=== PATIENT | female | born 1950 | race Caucasian/White ===

== ENCOUNTER 2016-07-04 22:13 | Emergency (ER) | payer OTHER ==
[~2016-07-04] VITALS: Ht 162.6 cm; Wt 68.2 kg
[2016-07-05] MEDS ORDERED: IBUPROFEN 200 MG TABLET ONE (00:45)
[2016-07-05] MEDS ORDERED: HYDROcodone/APAP 5/325 TABLET ONE (00:45)
[2016-07-05] MEDS ORDERED: HYDROcodone/APAP 5/325 TABLET PO ONE (01:00)
[2016-07-05] MEDS ORDERED: IBUPROFEN 200 MG TABLET PO ONE (01:00)
[2016-07-05 01:22] VITALS: BP 118/78
[2016-07-06] MEDS ORDERED: HYDR-3341 PO (01:59)
[2016-07-06] MEDS ORDERED: PREG100C PO (01:59)
[2016-07-06] MEDS ORDERED: HYDR-3307 PO (01:59)
[2016-07-06] MEDS ORDERED: AMLO5TAB2 PO (01:59)
== END 2016-07-05 01:26 | disposition home or self-care (01) ==
LOC: ED 23:59
DX: S70.01XA Contusion of right hip, initial encounter (principal); S39.012A Strain of muscle, fascia and tendon of lower back, initial encounter; E11.9 Type 2 diabetes mellitus without complications; Z90.49 Acquired absence of other specified parts of digestive tract; X58.XXXA Exposure to other specified factors, initial encounter; Y93.89 Activity, other specified; Y92.89 Other specified places as the place of occurrence of the external cause; Y99.8 Other external cause status
CPT/HCPCS: 71020; 72110; 72170; 99284

== ENCOUNTER 2020-04-07 09:20 | Inpatient (IN) | payer MEDICARE, OTHER ==
[~2020-04-07] VITALS: Ht 162.6 cm; Wt 92.1 kg
[~2020-04-07 09:20] MED LIST: AMLO-150 PO; ATOR40TA78 PO; HYDR-3248 PO; HYDR-3341 PO; LISI-170 PO; MAGN400T26 PO; METO-99 PO; OMEP-110 PO; POTA20TA6 PO; PREG100C PO; TRAM50TA2 PO; VANC1VIA3 PO
[2020-04-07] MEDS ORDERED: ONDANSETRON 2MG/ML, 2ML IVPush ONE (09:30)
[2020-04-07] MEDS ORDERED: MORPHINE SULFATE 4 MG/ML, 1ML IVPush PRN (09:30)
[2020-04-07] MEDS ORDERED: SODIUM CHLORIDE FLUSH 10ML SYR IVF ONE (09:30)
--- NOTE | 2020-04-07 09:34 | NUR ---
PT CAME IN [place] LEFT ARM PAIN WHERE HER FISTULA IS. PT GETS DIAYLSIS MWF BUT HAD IT ON WEDNESDAY THIS WEEK BECASUE SHE WAS VACATIONING TO THE R. PT ALSO ADMITS TO GETTING COVID SHOT IN THAT ARM. PT FOUND TO BE HYPOXIC ON RM AIR AT 85%, PLACED ON 2 LITERS AND IS NOW 95%. PT RESTING IN [facility]. CONNECTED TO MONITORING EQUIPMENT
[2020-04-07] MEDS ORDERED: MORPHINE SULFATE 4 MG/ML, 1ML ONE (09:43)
[2020-04-07] MEDS ORDERED: ONDANSETRON 2MG/ML, 2ML ONE (09:43)
--- NOTE | 2020-04-07 10:04 | NUR ---
IVSTARTED. MEDICATED PER MAR
[2020-04-07 10:24] LABS: ALBUMIN 3.7 g/dL (3.4-5.0); ANION GAP 9 mmol/L (5-15); CALCIUM 9.2 mg/dL (8.5-10.1); CHLORIDE 98 mmol/L (98-107); CREATININE 5.78 mg/dL (0.55-1.02)
[2020-04-07 10:28] LABS: TROPONIN I < 0.015 ng/mL (0.000-0.045)
[2020-04-07 10:31] LABS: BASOPHILS % (AUTO) 1 % (0-1); EOSINOPHILS % (AUTO) 1 % (1-7); LYMPHOCYTES % (AUTO) 8 % (22-44); MEAN CORPUSCULAR HEMOGLOBIN 27.3 pg (27.0-34.8); MEAN CORPUSCULAR HGB CONC 32.9 g/dL (32.4-35.8); MEAN PLATELET VOLUME 8.5 fL (7.4-10.4); MONOCYTES % (AUTO) 8 % (2-9); NEUTROPHILS % (AUTO) 83 % (42-75); PLATELET COUNT 169 x10^3/uL (130-400); RED CELL DISTRIBUTION WIDTH 22.2 % (9.6-15.2)
[2020-04-07 10:53] LABS: MD MORPH REVIEW ONLY
[2020-04-07 10:54] LABS: <PLATELET ESTIMATE> ADEQUATE; <PLT MORPHOLOGY> NORMAL PLT MORPH; ANISOCYTOSIS 1+; OVALOCYTES 1+; POLYCHROMASIA 1+
[2020-04-07] MEDS ORDERED: OMNIPAQUE 350 MG/ML, 75ML BOTTLE ONE (11:00)
[2020-04-07] MEDS ORDERED: ALBUTEROL/IPRATROPIUM 2.5MG/0.5MG, 3 ML NEB ONE (12:00)
[2020-04-07] MEDS ORDERED: methylPREDNISolone SOD SUCC 125 MG/2 ML IVPush ONE (12:00)
[2020-04-07] MEDS ORDERED: ACETAMINOPHEN 500 MG TABLET PO ONE (12:00)
[2020-04-07] MEDS ORDERED: CEFTRIAXONE PMX 1GM/50ML 50 ML ONE (12:10)
[2020-04-07] MEDS ORDERED: methylPREDNISolone SOD SUCC 125 MG/2 ML ONE (12:10)
[2020-04-07] MEDS ORDERED: HYDROcodone/APAP 10/325 MG TABLET ONE (12:11)
[2020-04-07] MEDS ORDERED: ALBUTEROL/IPRATROPIUM 2.5MG/0.5MG, 3 ML ONE (12:11)
[2020-04-07] MEDS ORDERED: HYDROcodone/APAP 10/325 MG TABLET PO ONE (12:30)
[2020-04-07] MEDS ORDERED: CEFTRIAXONE PMX 1GM/50ML 50 ML IV ONE (12:30)
[2020-04-07] MEDS ORDERED: AZITHROMYCIN 500 MG in SODIUM CHLORIDE 0.9% 250 ML IV ONE (12:30)
--- NOTE | 2020-04-07 12:40 | NUR ---
BREATHING TX IN PROGRESS. PT TOLERATING WELL. COVNOMAN SWAB WALKED TO LAB
[2020-04-07] MEDS ORDERED: ONDANSETRON ODT 4 MG PO PRN (13:00)
[2020-04-07] MEDS ORDERED: ONDANSETRON 2MG/ML, 2ML IVPush PRN (13:00)
[2020-04-07] MEDS ORDERED: BACLOFEN 10 MG TABLET PO PRN (13:00)
[2020-04-07] MEDS ORDERED: BUTALB/APAP/CAFFEINE 50MG/325MG/40MG PO PRN (13:00)
[2020-04-07] MEDS ORDERED: hydrALAzine 20 MG/ML, 1ML IVPush PRN (13:00)
[2020-04-07] MEDS ORDERED: GUAIFENESIN/DM 200-20MG, 10ML UDC PO PRN (13:00)
[2020-04-07] MEDS ORDERED: ACETAMINOPHEN 325 MG TABLET PO PRN (13:00)
[2020-04-07] MEDS ORDERED: ENALAPRILAT 1.25 MG/ML, 2ML IVPush PRN (13:00)
--- NOTE | 2020-04-07 13:05 | NUR ---
PT RESTING IN [facility]. MEDICATED PER APR. NO NEEDS AT THIS TIME
--- NOTE | 2020-04-07 13:35 | NUR ---
PT RESTING IN [facility]. NAD. WILL CONTINUE TO MONITOR
[2020-04-07 14:15] VITALS: BP 125/69
[2020-04-07] MEDS: NICOTINE 21 MG/24 HR PATCH.TD24 TD SCH (16:49)
[2020-04-07] MEDS ORDERED: ATOR40TA78 PO (17:18)
[2020-04-07] MEDS ORDERED: CALC667C PO (17:18)
[2020-04-07] MEDS ORDERED: FURO80TA3 PO (17:18)
[2020-04-07] MEDS ORDERED: METO-95 PO (17:18)
[2020-04-07] MEDS ORDERED: FLUT1DIS3 INH (17:18)
[2020-04-07] MEDS ORDERED: OMEP-110 PO (17:18)
[2020-04-07] MEDS ORDERED: HYDR1TAB53 PO (17:18)
[2020-04-07] MEDS ORDERED: PREG100C PO (17:18)
[2020-04-07] MEDS ORDERED: BENA20TA54 PO (17:18)
[2020-04-07] MEDS ORDERED: ALBU8.5H8 INH (17:18)
[2020-04-07] MEDS ORDERED: HYDROcodone/APAP 10/325 MG TABLET PO PRN (18:00)
[2020-04-07 20:35] VITALS: BP 148/67
[2020-04-07] MEDS ORDERED: PREGABALIN 100 MG CAPSULE PO SCH (21:00)
[2020-04-07] MEDS: ALBUTEROL HFA 90 MCG/SPRAY INH SCH (22:01)
[2020-04-07] MEDS: ATORVASTATIN 40 MG TABLET PO SCH (22:02)
[2020-04-07] MEDS: MELATONIN 5 MG TABLET PO SCH (22:02)
[2020-04-07] MEDS: FUROSEMIDE 80 MG TABLET PO SCH (22:03)
[2020-04-08] MEDS: CEFTRIAXONE PMX 1GM/50ML 50 ML IV SCH ×2 (00:38→11:39)
[2020-04-08 00:41] VITALS: BP 144/76
[2020-04-08] MEDS: ALBUTEROL HFA 90 MCG/SPRAY INH SCH ×8 (01:00→23:20)
[2020-04-08 02:23] VITALS: BP 136/69
[2020-04-08 04:46] VITALS: BP 137/71
[2020-04-08 05:43] LABS: MEAN CORPUSCULAR HEMOGLOBIN 27.6 pg (27.0-34.8); MEAN CORPUSCULAR HGB CONC 32.8 g/dL (32.4-35.8); MEAN PLATELET VOLUME 8.4 fL (7.4-10.4); PLATELET COUNT 146 x10^3/uL (130-400); RED BLOOD COUNT 3.47 x10^6/uL (3.82-5.3); RED CELL DISTRIBUTION WIDTH 21.8 % (9.6-15.2)
[2020-04-08 05:52] LABS: ALANINE AMINOTRANSFERASE 10 U/L (12-78); ANION GAP 8 mmol/L (5-15); CALCIUM 8.3 mg/dL (8.5-10.1); CHLORIDE 99 mmol/L (98-107)
[2020-04-08 05:54] LABS: ALKALINE PHOSPHATASE 85 U/L (45-117); BILIRUBIN,TOTAL 0.3 mg/dL (0.2-1.0)
[2020-04-08 06:17] LABS: MD YES
[2020-04-08 06:19] LABS: BAND#(MANUAL) 0.09 x10^3/uL; BANDS%(MANUAL) 1 % (0-7); BASOS#(MANUAL) 0.09 x10^3/uL (0-0.1); BASOS% (MANUAL) 1 % (0-1); LYMPH#(MANUAL) 0.26 x10^3/uL (1-3.4); LYMPHS% (MANUAL) 3 % (22-44); MONOS#(MANUAL) 0.17 x10^3/uL (0.3-2.7); MONOS% (MANUAL) 2 % (2-9); OVALOCYTES 1+; POLYCHROMASIA 1+; SEG#(MANUAL) 8.09 x10^3/uL (1.8-6.8); SEGS% (MANUAL) 93 % (42-75)
[2020-04-08 06:21] LABS: <PLATELET ESTIMATE> DECREASED; LARGE PLATELETS 1+
[2020-04-08 08:15] VITALS: BP 144/73
[2020-04-08] MEDS: SENNA/DOCUSATE TABLET PO SCH (09:00)
[2020-04-08] MEDS: FLUTICASONE/VILANTEROL 100-25MCG/INH INH SCH ×2 (09:58→11:19)
[2020-04-08] MEDS: CALCIUM ACETATE 667 MG CAPSULE PO SCH ×4 (09:58→16:00)
[2020-04-08] MEDS: OMEPRAZOLE 20 MG CAPSULE.DR PO SCH (09:59)
[2020-04-08] MEDS: BENAZEPRIL 20 MG TABLET PO SCH (09:59)
[2020-04-08] MEDS: FUROSEMIDE 80 MG TABLET PO SCH ×2 (09:59→22:07)
[2020-04-08] MEDS: NICOTINE 21 MG/24 HR PATCH.TD24 TD SCH (10:00)
[2020-04-08] MEDS: METOPROLOL SUCCINATE 100 MG TAB.ER.24H PO SCH (10:00)
[2020-04-08] MEDS ORDERED: AZITHROMYCIN 500 MG in SODIUM CHLORIDE 0.9% 250 ML IV SCH (12:30)
[2020-04-08 13:46] VITALS: BP 129/67
[2020-04-08] MEDS ORDERED: ALBUTEROL/IPRATROPIUM 2.5MG/0.5MG, 3 ML NEB SCH (18:30)
[2020-04-08 18:49] VITALS: BP 134/63
[2020-04-08] MEDS: MELATONIN 5 MG TABLET PO SCH (20:27)
[2020-04-08] MEDS: ATORVASTATIN 40 MG TABLET PO SCH (22:06)
[2020-04-09 00:14] VITALS: BP 141/54
[2020-04-09] MEDS: CEFTRIAXONE PMX 1GM/50ML 50 ML IV SCH (00:27)
[2020-04-09] MEDS: ALBUTEROL HFA 90 MCG/SPRAY INH SCH ×2 (02:10→07:15)
[2020-04-09 05:32] LABS: BASOPHILS % (AUTO) 1 % (0-1); EOSINOPHILS % (AUTO) 1 % (1-7); LYMPHOCYTES % (AUTO) 13 % (22-44); MEAN CORPUSCULAR HEMOGLOBIN 27.2 pg (27.0-34.8); MEAN CORPUSCULAR HGB CONC 32.1 g/dL (32.4-35.8); MEAN PLATELET VOLUME 8.2 fL (7.4-10.4); MONOCYTES % (AUTO) 9 % (2-9); NEUTROPHILS % (AUTO) 77 % (42-75); PLATELET COUNT 164 x10^3/uL (130-400); RED BLOOD COUNT 3.74 x10^6/uL (3.82-5.3); RED CELL DISTRIBUTION WIDTH 22.4 % (9.6-15.2)
[2020-04-09 05:35] LABS: ALBUMIN 2.8 g/dL (3.4-5.0); ANION GAP 8 mmol/L (5-15); CALCIUM 8.2 mg/dL (8.5-10.1); CHLORIDE 98 mmol/L (98-107); CREATININE 4.34 mg/dL (0.55-1.02)
[2020-04-09 06:09] LABS: MD SCAN
[2020-04-09 06:51] VITALS: BP 152/64
[2020-04-09] MEDS: FUROSEMIDE 80 MG TABLET PO SCH (07:35)
[2020-04-09] MEDS: NICOTINE 21 MG/24 HR PATCH.TD24 TD SCH (07:35)
[2020-04-09] MEDS: OMEPRAZOLE 20 MG CAPSULE.DR PO SCH (07:35)
[2020-04-09] MEDS: METOPROLOL SUCCINATE 100 MG TAB.ER.24H PO SCH (07:36)
[2020-04-09] MEDS: CALCIUM ACETATE 667 MG CAPSULE PO SCH ×2 (07:36→11:34)
[2020-04-09] MEDS: SENNA/DOCUSATE TABLET PO SCH (07:36)
[2020-04-09] MEDS: BENAZEPRIL 20 MG TABLET PO SCH (07:36)
[2020-04-09] MEDS ORDERED: DILTIAZEM 30 MG TABLET PO SCH (08:30)
[2020-04-09] MEDS ORDERED: AMIODARONE 150 MG in DEXTROSE 5% 100 ML IV ONE (09:00)
[2020-04-09] MEDS ORDERED: FILTER 0.22 MICRON FOR AMIODARONE IV PRN (09:00)
[2020-04-09] MEDS: FLUTICASONE/VILANTEROL 100-25MCG/INH INH SCH (09:15)
[2020-04-09] MEDS ORDERED: PRED20TA PO (11:44)
[2020-04-09] MEDS ORDERED: DOXY100T PO (11:44)
[2020-04-09] MEDS ORDERED: ALBUTEROL HFA 90 MCG/SPRAY INH SCH (15:00)
== END 2020-04-09 13:07 | disposition home or self-care (01) | DRG 193 ==
LOC: ED 09:41 → EDIP 12:19 → 4EST 14:13 → DCLOUNGE 04-09 12:57
PROVIDERS: ADMIT Hospitalist; ATTEND Internal Medicine
PROC: 5A1D70Z Performance of Urinary Filtration, Intermittent, Less than 6 Hours Per Day (ICD-10-PCS; principal; 2020-04-08)
DX: J18.9 Pneumonia, unspecified organism (principal); J96.21 Acute and chronic respiratory failure with hypoxia; N18.6 End stage renal disease; G93.41 Metabolic encephalopathy; J44.0 Chronic obstructive pulmonary disease with (acute) lower respiratory infection; J44.1 Chronic obstructive pulmonary disease with (acute) exacerbation; G25.9 Extrapyramidal and movement disorder, unspecified; I13.2 Hypertensive heart and chronic kidney disease with heart failure and with stage 5 chronic kidney disease, or end stage renal disease; D63.1 Anemia in chronic kidney disease; E11.22 Type 2 diabetes mellitus with diabetic chronic kidney disease; E78.5 Hyperlipidemia, unspecified; E87.5 Hyperkalemia; F17.210 Nicotine dependence, cigarettes, uncomplicated; G47.33 Obstructive sleep apnea (adult) (pediatric); M25.512 Pain in left shoulder; R33.9 Retention of urine, unspecified; I25.10 Atherosclerotic heart disease of native coronary artery without angina pectoris; I48.0 Paroxysmal atrial fibrillation; I50.9 Heart failure, unspecified; Z20.822 Contact with and (suspected) exposure to COVID-19; Z99.2 Dependence on renal dialysis; I25.2 Old myocardial infarction; Z90.49 Acquired absence of other specified parts of digestive tract
CPT/HCPCS: 36415; 36600; 70450; 71045; 71275; 80048; 80053; 80069; 82040; 82140; 82728; 82803; 83615; 83735; 83880; 84145; 84439; 84443; 84484; 85025; 85379; 86705; 86706; 87040; 87340; 93005; 94640; 96374; 96375; 99285; G0378; J0456; J0696; J2405; Q9967; J2270; J2930; J7050; J7512; U0003